=== PATIENT | female | born 1995 | race African-American/Black ===

== ENCOUNTER 2025-04-01 20:59 | Emergency (ER) | payer SELFPAY ==
[~2025-04-01] VITALS: Ht 154.9 cm; Wt 64.0 kg
[2025-04-01 21:05] VITALS: O2SAT 99
[2025-04-01 21:10] VITALS: BP 114/78; PULSE 95; RESP 16; TEMP 37.3; O2SAT 100
[2025-04-01 22:33] LABS: CLARITY URINE CLOUDY (CLEAR); COLOR URINE YELLOW (YELLOW); GLUCOSE URINE NEGATIVE (NEGATIVE); KETONES URINE TRACE (NEGATIVE); LEUKOCYTE ESTERASE URINE 2+ (NEGATIVE); NITRITE URINE NEGATIVE (NEGATIVE); OCCULT BLOOD URINE NEGATIVE (NEGATIVE); PH URINE 6.0 (4.5-8.0); PROTEIN URINE TRACE (NEGATIVE); SPECIFIC GRAVITY URINE 1.021 (1.005-1.030); UROBILINOGEN URINE 1.0 E.U./dL (0.2-1.0)
[2025-04-01 22:44] LABS: BACTERIA URINE 1+; RBC URINE 0-2 /hpf (0-2); SQUAMOUS EPITHELIAL CELL URINE FEW /lpf (RARE/1+)
[2025-04-02] MEDS: ACETAMINOPHEN 500MG TABLET PO ONE (00:05)
[2025-04-02 00:13] LABS: BASOPHILS % 0.2 % (0.0-2.0); EOSINOPHILS % 0.1 % (0.0-5.0); HEMATOCRIT. 39.7 % (36.0-48.0); HEMOGLOBIN. 14.0 g/dL (12.0-16.0); LYMPHOCYTES % 7.9 % (20.0-50.0); MEAN PLATELET VOLUME 8.8 fl (7.4-10.4); MONOCYTES % 4.1 % (2.0-8.0); NEUTROPHILS % 87.7 % (40.0-76.0); PLATELET 220 x1000/uL (130-400); RED BLOOD CELL COUNT 4.74 mill/uL (4.2-5.4); RED CELL DISTRIBUTION WIDTH 14.5 % (11.6-14.6)
[2025-04-02 00:30] LABS: CREATININE 0.8 mg/dL (0.6-1.0)
[2025-04-02 00:31] LABS: PROTEIN TOTAL 7.3 g/dL (6.0-8.3); UREA NITROGEN BLOOD 10 mg/dL (9-23)
[2025-04-02 00:32] LABS: ASPARTATE AMINOTRANSFERASE 16 IU/L (<34); BILIRUBIN DIRECT 0.3 mg/dL (<=3.0)
[2025-04-02 00:33] LABS: BILIRUBIN TOTAL 1.0 mg/dL (0.1-1.0)
[2025-04-02] MEDS ORDERED: CEPH500C2 MT (01:01)
[2025-04-02] MEDS ORDERED: IMOD MT (01:01)
[2025-04-02 01:52] LABS: HCG SCREEN NEGATIVE
== END 2025-04-02 01:16 | disposition home or self-care (01) ==
LOC: ER 20:59
DX: N39.0 Urinary tract infection, site not specified (principal); R19.7 Diarrhea, unspecified; R11.0 Nausea; Z88.0 Allergy status to penicillin
CPT/HCPCS: 36415; 80048; 80076; 81003; 81025; 84703; 85025; 99283